=== PATIENT | male | born 1950 | race Caucasian/White ===

== ENCOUNTER 2016-11-15 12:21 | Inpatient (IN) | payer OTHER ==
[~2016-11-15] VITALS: Ht 177.8 cm; Wt 61.4 kg
[~2016-11-15 12:21] MED LIST: ALBU0.08 INH; BISA10SU5 RE; CHLO1TAB19 PO; DOCU5LIQ PEG; HEPA1INJ22 SQ; LISI20TA3; METO25TA56 PO; OXYC-57 PO; PANT1TAB48 PO; Pt states none
[2016-11-15] MEDS ORDERED: SODIUM CHLORIDE 0.9% 1000ML 1,000 ML IV STA (13:27)
[2016-11-15 13:43] LABS: BASO % 0.1 %; BASO ABS # 0.02 K/uL (0-0.2); COMPLETE YES; EOS % 0.1 %; HEMATOCRIT 43.8 % (42-52); IG% 0.3 %; LYMPH % 12.6 %; LYMPH ABS # 1.85 K/uL (1.2-3.4); MEAN CELL VOLUME 80.7 fL (80-100); MEAN CORPUSCULAR HEMOGLOBIN 26.9 pg (25-34); MEAN CORPUSCULAR HGB CONC 33.3 g/dl (32-36); MEAN PLATELET VOLUME 9.9 fL (7.4-10.4); MONO % 7.2 %; NEUT % 79.7 %; PLATELET COUNT 455 K/uL (130-400); RED BLOOD COUNT 5.43 M/uL (4.7-6.1); WHITE BLOOD COUNT 14.65 K/uL (4.8-10.8)
[2016-11-15 14:00] LABS: ISTAT CREATININE 0.9 mg/dl (0.6-1.3); ISTAT IONIZED CALCIUM 1.72 mmol/l (1.12-1.32)
[2016-11-15 14:13] LABS: BUN/CREATININE RATIO 17.3 (10-20); CALCIUM 13.1 mg/dl (8.5-10.1); CREATININE 0.89 mg/dl (0.60-1.40); MAGNESIUM 1.9 mg/dl (1.8-2.4); POTASSIUM 3.8 mmol/L (3.5-5.1)
--- NOTE | 2016-11-15 14:19 | DIAGNOSTIC IMAGING REPORT ---
CHEST ONE VIEW PORTABLE HISTORY: Short of breath. COMPARISON: None. FINDINGS: Nodular density within the right lateral lung base is consistent with a nipple shadow. The lungs are clear. The heart is normal in size. No pleural effusions. No pneumothorax. IMPRESSION: No acute process. Electronically signed by: Clay Trent M.D. 11/15/2016 2:18 PM Dictated Date/Time: 11/15/2016 2:15 PM
--- NOTE | 2016-11-15 15:00 | DIAGNOSTIC IMAGING REPORT ---
CT NECK WITH INTRAVENOUS CONTRAST HISTORY: large neck mass TECHNIQUE: Multiaxial CT images of the neck were performed following the use of intravenous contrast. COMPARISON STUDY: None. FINDINGS: There is a large necrotic and ulcerating mass within the left neck which measures 15 x 13 x 10 cm. The ulcerating tract to the skin surface measures 1.7 cm in diameter. The left internal jugular vein is obliterated. This mass encases the majority of the left common and internal carotid artery with mild narrowing of the proximal left internal carotid artery. There is right-sided necrotic cervical lymphadenopathy. There are multiple additional necrotic left cervical lymph nodes. There is also necrotic left upper peritracheal lymphadenopathy. Emphysema. Mucoid material within the distal trachea and right mainstem bronchus which may be due to aspiration. No suspicious lytic or blastic osseous lesions. The brain parenchyma and orbits are unremarkable. This large left neck mass results in marked right deviation of the airway with 50% narrowing of the supraglottic airway. This mass invades into the left parapharyngeal soft tissues, left tongue base, left thyroid lobe, and results in partial destruction of the left thyroid cartilage. This mass also partially encases the left thyroid lobe and crosses over the midline at the level of the cricoid cartilage anteriorly. This mass is also seen extending into the prevertebral soft tissues. The mass also invades the left supraglottic soft tissues. There is submandibular/submental lymphadenopathy. Dominant left posterior cervical chain lymph node measures 2.2 cm. This mass also encases the left hemimandible. IMPRESSION: 1. A 15 x 13 x 10 cm necrotic and ulcerating left neck mass as described above. This invades into the multiple adjacent structures and crosses over the midline anteriorly at the level of the cricoid cartilage. 2. There is obliteration of the left internal jugular vein and encasement of the left carotid arteries. 3. There is bilateral necrotic cervical lymphadenopathy and upper left paratracheal lymphadenopathy consistent with metastatic disease. 4. There is marked right airway deviation with approximately 50% narrowing of the supraglottic airway. 5. Additional findings as described above. 6. These findings were discussed with Dr. Grace at 2:50 PM on 11/15/2016. Electronically signed by: Clay Trent M.D. 11/15/2016 2:59 PM Dictated Date/Time: 11/15/2016 2:35 PM
[2016-11-15] MEDS ORDERED: MoRPHine SULFATE 10 MG/0.5 ML UDP PO PRN (18:00)
--- NOTE | 2016-11-15 18:22 | History and Physical ---
History & Physical Date & Time of Service: Nov 15, 2016 at 17:00 . Chief Complaint: weakness . Primary Care Physician: Aleksandr Spann D.O. . History of Present Illness Source: patient, family, clinic records, hospital records 66 [address]O male followed by Dr. Spann. History of COPD. Recently noted to have large neck mass. Seen by ENT. Biopsy revealed squamous cell carcinoma. Found to have advanced inoperable disease. Palliative management recommended. Referred to Radiation Oncology for consideration of palliative radiation therapy. Seen in their clinic today. Referred for hospitalization because of weakness, possible infection of neck mass, and other concerns. Patient indicates that he has not noted any fever or chills. He is very weak and spends 80% of his time in bed. Trouble eating due to jaw discomfort and dysphagia to solids. Has lost about 50 lbs. Has had drainage from left neck for a while. Experiencing significant neck pain, about 8/10. Pain is constant, nonradiating. He is not taking any analgesics at home . 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 Family History Mother- cerebral aneurysm Father- CT, hypertension, black lung Brother- Ca, ? colon . Social History Smoking Status: Former Smoker Alcohol Use: prior history of alcohol consumption Drug Use: none Occupational Status: employed Allergies Coded Allergies: No Known Allergies (Unverified , 11/15/16) Review of Systems Constitutional: + weight loss, No chills, No fever Eyes: No worsening of vision (left eye) ENT: + sore throat, + trouble swallowing Respiratory: + cough (chronic, unchanged), + shortness of breath (chronic) Cardiovascular: No chest pain, No edema Abdomen: No GI bleeding, No diarrhea, No nausea, No pain, No vomiting Musculoskeletal: No joint pain, No muscle pain Genitourinary - Male: No dysuria, No hematuria Neurologic: + problem reported (no headahces) Endocrine: + fatigue, No excessive thirst, No excessive urination Hematologic / Lymphatic: No abnormal bleeding/bruising Integumentary: No new/changing skin lesions, No rash Physical Exam Vital Signs Date Time Temp Pulse Resp B/P Pulse Ox O2 Delivery O2 Flow Rate FiO2 11/15/16 16:56 89 18 121/83 94 Room Air 11/15/16 14:58 88 18 142/96 97 Room Air 11/15/16 14:11 86 18 143/71 96 Room Air 11/15/16 12:27 36.8 102 20 130/103 97 Room Air General Appearance: no apparent distress, + thin Head: normocephalic, atraumatic Eyes: normal inspection, PERRL, EOMI, sclerae normal ENT: + pertinent finding (poor dentition) Neck: + pertinent finding (large mass left neck extending across midline, nodular, foul smelling drainage, trachea and other landmarks obscurred) Respiratory/Chest: no respiratory distress, no accessory muscle use, + wheezing (diffuse mild wheezing) Cardiovascular: regular rate, rhythm, no edema, no gallop, no JVD, no murmur Abdomen/GI: normal bowel sounds, non tender, soft, no organomegaly Extremities/Musculoskelatal: normal inspection, no calf tenderness, normal capillary refill, no pedal edema 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 adenopathy) Diagnostics Laboratory Results Results Past 24 Hours Test 11/15/16 13:20 11/15/16 13:27 Range/Units White Blood Count 14.65 4.8-10.8 K/uL Red Blood Count 5.43 4.7-6.1 M/uL Hemoglobin 14.6 14.0-18.0 g/dL Hematocrit 43.8 42-52 % Mean Corpuscular Volume 80.7 80-100 fL Mean Corpuscular Hemoglobin 26.9 25-34 pg Mean Corpuscular Hemoglobin Concent 33.3 32-36 g/dl Platelet Count 455 130-400 K/uL Mean Platelet Volume 9.9 7.4-10.4 fL Neutrophils (%) (Auto) 79.7 % Lymphocytes (%) (Auto) 12.6 % Monocytes (%) (Auto) 7.2 % Eosinophils (%) (Auto) 0.1 % Basophils (%) (Auto) 0.1 % Neutrophils # (Auto) 11.67 1.4-6.5 K/uL Lymphocytes # (Auto) 1.85 1.2-3.4 K/uL Monocytes # (Auto) 1.06 0.11-0.59 K/uL Eosinophils # (Auto) 0.01 0-0.5 K/uL Basophils # (Auto) 0.02 0-0.2 K/uL RDW Standard Deviation 42.9 36.4-46.3 fL RDW Coefficient of Variation 14.9 11.5-14.5 % Immature Granulocyte % (Auto) 0.3 % Immature Granulocyte # (Auto) 0.04 0.00-0.02 K/uL Sodium Level 139 136-145 mmol/L Potassium Level 3.8 3.5-5.1 mmol/L Chloride Level 100 98-107 mmol/L Carbon Dioxide Level 29 21-32 mmol/L Anion Gap 10.0 14.0 16-25 mmol/L Blood Urea Nitrogen 15 7-18 mg/dl Creatinine 0.89 0.60-1.40 mg/dl Est Creatinine Clear Calc Drug Dose 71.9 ml/min Estimated GFR () 104.0 Estimated GFR (Non- 89.7 BUN/Creatinine Ratio 17.3 10-20 Random Glucose 114 70-99 mg/dl Calcium Level 13.1 8.5-10.1 mg/dl Magnesium Level 1.9 1.8-2.4 mg/dl Total Bilirubin 0.5 0.2-1 mg/dl Direct Bilirubin 0.2 0-0.2 mg/dl Aspartate Amino Transf (AST/SGOT) 27 15-37 U/L Alanine Aminotransferase (ALT/SGPT) 13 12-78 U/L Alkaline Phosphatase 116 45-117 U/L Total Creatine Kinase 50 39-308 U/L Total Protein 7.9 6.4-8.2 gm/dl Albumin 2.6 3.4-5.0 gm/dl Bedside Hemoglobin 15.0 14.0-18.0 g/dl Bedside Hematocrit 44 42-52 % Bedside Sodium 138 135-144 mEq/L Bedside Potassium 3.8 3.3-5.0 mEq/L Bedside Chloride 99 101-112 mEq/L Bedside Total CO2 30 24-31 mEq/l Bedside Blood Urea Nitrogen 17 7-18 mg/dl Bedside Creatinine 0.9 0.6-1.3 mg/dl Bedside Glucose (other) 125 70-99 mg/dl Bedside Ionized Calcium (Lisa) 1.72 1.12-1.32 mmol/l Diagnostic Radiology CHEST ONE VIEW PORTABLE FINDINGS: Nodular density within the right lateral lung base is consistent with a nipple shadow. The lungs are clear. The heart is normal in size. No pleural effusions. No pneumothorax. IMPRESSION: No acute process. Electronically signed by: Clay Trent M.D. 11/15/2016 2:[address] NECK IMPRESSION: 1. A 15 x 13 x 10 cm necrotic and ulcerating left neck mass as described above. This invades into the multiple adjacent structures and crosses over the midline anteriorly at the level of the cricoid cartilage. 2. There is obliteration of the left internal jugular vein and encasement of the left carotid arteries. 3. There is bilateral necrotic cervical lymphadenopathy and upper left paratracheal lymphadenopathy consistent with metastatic disease. 4. There is marked right airway deviation with approximately 50% narrowing of the supraglottic airway. 5. Additional findings as described above. 6. These findings were discussed with Dr. Grace at 2:50 PM on 11/15/2016. Electronically signed by: Clay Trent M.D. 11/15/2016 2:59 PM . Impression Assessment and Plan HEAD & NECK CA Advanced / inoperable squamous cell Ca of neck. Associated with weight loss, pain, functional decline. Extensive CT findings as noted above with invasion of surrounding structures. Possible associated infection (vs necrosis of mass). Palliative care recommended by ENT. Referred to Radiation Oncology for possible palliative radiation therapy. IV fluids for dehydration and hypercalcemic. Consider bisphosphonate therapy if severe hypercalcemia persists. Oral morphine solution, IV morphine PRN, fentanyl patch for pain management. Unlikely that nutritional support via PEG or other approach would offer any benefit. Start IV ampicillin / sulbactam for possible associated infection of tumor. VTE PROPHYLAXIS High risk for VTE. SCD's. Ambulate as able. RESUSCITATION STATUS Discussed with patient and his family. He prefers a natural passing. No CPR or mech ventilation. DNR. DISPOSITION To be determined. Patient would like to be discharged to home if possible. Hospice care may be appropriate if palliative radiation therapy is not recommended. Medical follow-up with Dr. Spann. . VTE Prophylaxis VTE Risk Assessment Done? Y/N: Yes Risk Level: Moderate Given or contraindicated: SCD's
[2016-11-15 18:24] VITALS: O2SAT 95
[2016-11-15 19:14] VITALS: BP 134/88; PULSE 87; TEMP 36.6; O2SAT 96
--- NOTE | 2016-11-15 20:38 | EMERGENCY ROOM VISIT NOTE ---
History Report prepared by Macibshalonda: Oneal Donato Under the Supervision of: Dr. Den Grace D.O. First contact with patient: 12:41 Chief Complaint: WEAKNESS Stated Complaint: DEHYDRATION, L NECK MASS Nursing Triage Summary: mass on neck left with mass on right neck HPV. OPEN AREA LEFT SIDE NECK . History of Present Illness The patient is a 66 year old male with a history of squamous cell carcinoma who presents to the Emergency Room with complaints of worsening generalized weakness for the past two months. The patient was diagnosed with cancer of the neck two months ago. He has not been able to eat secondary to pain with swallowing. The patient is also short of breath. His last meal was approximately 1.5 months ago, as per his family. His family also notes that the patient has lost 50 pounds over the past two months. The patient is able to tolerate fluids. He saw Dr. Leiva (Oncologist) today, who referred him to the ED. He has followed up with ENT at [facility]. The patient denies an history of HIV or immunocompromise. He has a history of COPD and hypertension. He has alvares in his mouth that are old. Patient denies headache, change in vision, fevers, chest pain, nausea, vomiting, diarrhea, pain with urination, and melena. Source of History: patient, family Onset: two months Position: other (generalized) Quality: other (weakness) Timing: worsening Associated Symptoms: + SOB, + neck pain, No chest pain, No diarrhea, No headache, No melena, No nausea, No urinary symptoms, No vomiting Review of Systems See HPI for pertinent positives & negatives. A total of 10 systems reviewed and were otherwise negative. Past Medical & Surgical Medical Problems: (1) COPD (chronic obstructive pulmonary disease) (2) Head and neck cancer (3) HTN (hypertension) (4) Squamous cell carcinoma of oral cavity Family History Patient reports no known family medical history. Social History Smoking Status: Former Smoker Drug Use: none Marital Status: Occupation Status: employed Allergies Coded Allergies: No Known Allergies (Unverified , 11/15/16) Physical Exam Vital Signs Date Time Temp Pulse Resp B/P Pulse Ox O2 Delivery O2 Flow Rate FiO2 11/15/16 16:56 89 18 121/83 94 Room Air 11/15/16 14:58 88 18 142/96 97 Room Air 11/15/16 14:11 86 18 143/71 96 Room Air 11/15/16 12:27 36.8 102 20 130/103 97 Room Air Physical Exam GENERAL: Ill-appearing, cachectic, malnourished. EYE EXAM: normal conjunctiva. OROPHARYNX: Tongue is erythematous and dry with deviation of the posterior pharynx to the right, appears to have old scarring on the roof of the mouth, able to visualize posterior pharynx, no obvious bleeding, no swelling below the tongue. NECK: Hoarse voice with intermittent mumbling, large circumferential neck mass most prominent on the left and midline with oozing blood, foul/necrotic smell, no stridor. LUNGS: Clear to auscultation. Normal chest wall mechanics HEART: no murmurs, S1 normal and S2 normal ABDOMEN: abdomen soft, non-tender, normo-active bowel sounds, no masses, no rebound or guarding. Dry blood on the abdomen. BACK: Back is symmetrical on inspection and there is no deformity, no midline tenderness, no CVA tenderness. UPPER EXTREMITIES: upper extremities are grossly normal. LOWER EXTREMITIES: No pitting edema. NEURO EXAM: Normal sensorium, cranial nerves II-XII grossly intact, normal speech, no gross weakness of arms, no gross weakness of legs. Gross sensation intact. Medical Decision & Procedures ER Provider Diagnostic Interpretation: Xray results per the radiologist and my interpretation. Other results have been interpreted by the radiologist and reviewed by me. CHEST ONE VIEW PORTABLE HISTORY: Short of breath. COMPARISON: None. FINDINGS: Nodular density within the right lateral lung base is consistent with a nipple shadow. The lungs are clear. The heart is normal in size. No pleural effusions. No pneumothorax. IMPRESSION: No acute process. Electronically signed by: Clay Trent M.D. 11/15/2016 2:18 PM Dictated Date/Time: 11/15/2016 2:[address] NECK WITH INTRAVENOUS CONTRAST HISTORY: large neck mass TECHNIQUE: Multiaxial CT images of the neck were performed following the use of intravenous contrast. COMPARISON STUDY: None. FINDINGS: There is a large necrotic and ulcerating mass within the left neck which measures 15 x 13 x 10 cm. The ulcerating tract to the skin surface measures 1.7 cm in diameter. The left internal jugular vein is obliterated. This mass encases the majority of the left common and internal carotid artery with mild narrowing of the proximal left internal carotid artery. There is right-sided necrotic cervical lymphadenopathy. There are multiple additional necrotic left cervical lymph nodes. There is also necrotic left upper peritracheal lymphadenopathy. Emphysema. Mucoid material within the distal trachea and right mainstem bronchus which may be due to aspiration. No suspicious lytic or blastic osseous lesions. The brain parenchyma and orbits are unremarkable. This large left neck mass results in marked right deviation of the airway with 50% narrowing of the supraglottic airway. This mass invades into the left parapharyngeal soft tissues, left tongue base, left thyroid lobe, and results in partial destruction of the left thyroid cartilage. This mass also partially encases the left thyroid lobe and crosses over the midline at the level of the cricoid cartilage anteriorly. This mass is also seen extending into the prevertebral soft tissues. The mass also invades the left supraglottic soft tissues. There is submandibular/submental lymphadenopathy. Dominant left posterior cervical chain lymph node measures 2.2 cm. This mass also encases the left hemimandible. IMPRESSION: 1. A 15 x 13 x 10 cm necrotic and ulcerating left neck mass as described above. This invades into the multiple adjacent structures and crosses over the midline anteriorly at the level of the cricoid cartilage. 2. There is obliteration of the left internal jugular vein and encasement of the left carotid arteries. 3. There is bilateral necrotic cervical lymphadenopathy and upper left paratracheal lymphadenopathy consistent with metastatic disease. 4. There is marked right airway deviation with approximately 50% narrowing of the supraglottic airway. 5. Additional findings as described above. 6. These findings were discussed with Dr. Grace at 2:50 PM on 11/15/2016. Electronically signed by: Clay Trent M.D. 11/15/2016 2:59 PM Dictated Date/Time: 11/15/2016 2:35 PM Laboratory Results 11/15/16 13:20 Red Blood Count 5.43, Mean Corpuscular Volume 80.7, Mean Corpuscular Hemoglobin 26.9, Mean Corpuscular Hemoglobin Concent 33.3, Mean Platelet Volume 9.9, Neutrophils (%) (Auto) 79.7, Lymphocytes (%) (Auto) 12.6, Monocytes (%) (Auto) 7.2, Eosinophils (%) (Auto) 0.1, Basophils (%) (Auto) 0.1, Neutrophils # (Auto) 11.67, Lymphocytes # (Auto) 1.85, Monocytes # (Auto) 1.06, Eosinophils # (Auto) 0.01, Basophils # (Auto) 0.02 11/15/16 13:20 Test 11/15/16 13:20 11/15/16 13:27 White Blood Count 14.65 K/uL (4.8-10.8) Red Blood Count 5.43 M/uL (4.7-6.1) Hemoglobin 14.6 g/dL (14.0-18.0) Hematocrit 43.8 % (42-52) Mean Corpuscular Volume 80.7 fL (80-100) Mean Corpuscular Hemoglobin 26.9 pg (25-34) Mean Corpuscular Hemoglobin Concent 33.3 g/dl (32-36) Platelet Count 455 K/uL (130-400) Mean Platelet Volume 9.9 fL (7.4-10.4) Neutrophils (%) (Auto) 79.7 % Lymphocytes (%) (Auto) 12.6 % Monocytes (%) (Auto) 7.2 % Eosinophils (%) (Auto) 0.1 % Basophils (%) (Auto) 0.1 % Neutrophils # (Auto) 11.67 K/uL (1.4-6.5) Lymphocytes # (Auto) 1.85 K/uL (1.2-3.4) Monocytes # (Auto) 1.06 K/uL (0.11-0.59) Eosinophils # (Auto) 0.01 K/uL (0-0.5) Basophils # (Auto) 0.02 K/uL (0-0.2) RDW Standard Deviation 42.9 fL (36.4-46.3) RDW Coefficient of Variation 14.9 % (11.5-14.5) Immature Granulocyte % (Auto) 0.3 % Immature Granulocyte # (Auto) 0.04 K/uL (0.00-0.02) Est Creatinine Clear Calc Drug Dose 71.9 ml/min Estimated GFR () 104.0 Estimated GFR (Non- 89.7 BUN/Creatinine Ratio 17.3 (10-20) Calcium Level 13.1 mg/dl (8.5-10.1) Magnesium Level 1.9 mg/dl (1.8-2.4) Total Bilirubin 0.5 mg/dl (0.2-1) Direct Bilirubin 0.2 mg/dl (0-0.2) Aspartate Amino Transf (AST/SGOT) 27 U/L (15-37) Alanine Aminotransferase (ALT/SGPT) 13 U/L (12-78) Alkaline Phosphatase 116 U/L (45-117) Total Creatine Kinase 50 U/L (39-308) Total Protein 7.9 gm/dl (6.4-8.2) Albumin 2.6 gm/dl (3.4-5.0) Bedside Hemoglobin 15.0 g/dl (14.0-18.0) Bedside Hematocrit 44 % (42-52) Bedside Sodium 138 mEq/L (135-144) Bedside Potassium 3.8 mEq/L (3.3-5.0) Bedside Chloride 99 mEq/L (101-112) Bedside Total CO2 30 mEq/l (24-31) Anion Gap 14.0 mmol/L (16-25) Bedside Blood Urea Nitrogen 17 mg/dl (7-18) Bedside Creatinine 0.9 mg/dl (0.6-1.3) Bedside Glucose (other) 125 mg/dl (70-99) Bedside Ionized Calcium (Lisa) 1.72 mmol/l (1.12-1.32) Laboratory results per my review. Medications Administered Medications (Trade) Dose Ordered Sig/Dex Route Start Time Stop Time Status Last Admin Dose Admin Sodium Chloride (Nss 1000ml) 1,000 ml @ 999 mls/hr Q1H1M STAT IV 11/15/16 13:27 11/15/16 14:27 DC 11/15/16 13:27 999 MLS/HR ED Course ED COURSE: Vital signs were reviewed and showed tachycardia. The patients medical record was reviewed The above diagnostic studies were performed and reviewed. ED treatments and interventions as stated above. 1243: The patient was evaluated in room B9. A complete history and physical examination was performed. 1320: The patient has been seen by [facility] tumor board, ENT, and rad onc. Palliative chemo/radiation was recommended. 1325: The patient and his family was updated. 1327: NSS 1000 ml @ 999 mls/hr. 1340: Spoke with Dr. Farrell, ENT. He reviewed [facility] reports on the patient. He does not believe the patient is a surgical candidate. The patient is DNR/DNI. 1355: Spoke with Dr. Leiva, Oncologist, who referred the patient to the ED. He does not believe the patient would have much benefit from radiation oncology at this time. 1548: [facility] The patient will be evaluated. 1550: Upon reevaluation, the patient is stable.I discussed my findings with the patient and he understands and agrees with the treatment plan. Based on the patients age, coexisting illnesses, exam and lab findings the decision to treat as an inpatient was made. The patient remained stable while under my care. The patient will be evaluated for further management. Medical Decision Differential diagnosis: Etiologies such as metabolic, infection, hypo/hyperglycemia, electrolyte abnormalities, cardiac sources, intracerebral event, toxicologic, neurologic, as well as others were entertained. 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 He has had an extensive workup at [facility] by the tumor Board and he was scheduled for outpatient chemotherapy and radiation which was palliative in nature per the report. He is referred in by radiation oncology. For being extremely weak. Labs were obtained and showed hypercalcemia. CT of the neck shows airway compromise along with the mass including/surrounding the carotid artery. I discussed this with Dr. Farrell and based on the presentation and previous reports the patient is not a surgical candidate. I discussed this with the patient and family. He is a DO NOT RESUSCITATE/DO NOT RESUSCITATE. Patient was given a bolus normal saline. He was admitted to internal medicine for diffuse weakness which may be secondary to his hypercalcemia could be from bone involvement. Patient will likely benefit from hospice and further outpatient help. Consults Time Called: 1330 Consulting Physician: Dr. Farrell, ENT. Returned Call: [phone]: Spoke with Dr. Farrell ENT. He reviewed [facility] reports on the patient. He does not believe the patient is a surgical candidate. The patient is DNR/DNI. Additional Consults: Time Called: 1345 Consulted Physician: Dr. Leiva, Oncologist Returned Call: [phone] Additional Comments: 1355: Spoke with Dr. Leiva Oncologist Time Called: 1540 Consulted Physician: Dr. Man [facility] Returned Call: [phone] Additional Comments: [id number]: Spoke with Dr. Man [facility]. The patient will be evaluated. Impression Primary Impression: Malnutrition Additional Impressions: Neck mass Hypercalcemia Scribe Attestation The scribe's documentation has been prepared under my direction and personally reviewed by me in its entirety. I confirm that the note above accurately reflects all work, treatment, procedures, and medical decision making performed by me. Departure Information Dispostion Being Evaluated By Hospitalist Referrals Dontae Arenas M.D. (PCP) Patient Instructions My [facility] Problem Qualifiers
[2016-11-15] MEDS: AMPICILLIN/SULBACTAM SOD INJ 3,000 MG in SODIUM CHLORIDE 0.9% 100ML 100 ML IV SCH (20:58)
[2016-11-15 23:46] VITALS: BP 122/83; PULSE 85; TEMP 36.4; O2SAT 92
[2016-11-16] MEDS: SODIUM CHLORIDE 0.9% 1000ML 1,000 ML IV SCH ×5 (02:10→20:15)
[2016-11-16] MEDS: AMPICILLIN/SULBACTAM SOD INJ 3,000 MG in SODIUM CHLORIDE 0.9% 100ML 100 ML IV SCH ×4 (02:10→17:08)
[2016-11-16 03:19] VITALS: Ht 177.8 cm; Wt 61.4 kg
[2016-11-16 06:55] LABS: BUN/CREATININE RATIO 18.8 (10-20); CALCIUM 11.8 mg/dl (8.5-10.1); CREATININE 0.67 mg/dl (0.60-1.40); POTASSIUM 3.2 mmol/L (3.5-5.1)
[2016-11-16 07:27] VITALS: BP 145/74; PULSE 90; TEMP 36.2; O2SAT 95
[2016-11-16] MEDS ORDERED: FENTANYL 25 MCG/HR TDSY TD SCH (07:30)
[2016-11-16 15:01] VITALS: BP 159/92; PULSE 117; TEMP 36.2; O2SAT 94
[2016-11-16] MEDS: CHECK FENTANYL PATCH PLACEMENT SCH (16:03)
[2016-11-16] MEDS: POTASSIUM CHLR 10 MEQ / WTR 10 MEQ in PREMIXED WATER 100 ML IV SCH ×2 (20:56→23:35)
--- NOTE | 2016-11-16 22:05 | Progress Note ---
Internal Med Progress Note Date of Service: Nov 16, 2016. Provider Documentation: SUBJECTIVE: mumbles words , very hard to understand mentions of having pain on neck area has foul smelling drainage rt arm IV site got pulled out accidently , noticed to have blood in fingers , hospital gown no active bleeding noted at IV site Nursing aware OBJECTIVE: Vital Signs-as noted below Exam: General-chronically ill appearing , restless Eyes-sclera non icteric Neck-Diffuse /necrotic foul smelling mass on left neck area Lungs-diminished , with audible wheeze Heart-regular S1/S2 Abdomen-soft , non tender Extremities-no lower ext edema Neuro-confusion , delirium Lab data as noted below. 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 recently diagnosed : presented with left anterior cervical neck mass Biopsy 10/02/2016 revealing metastatic squamous cell carcinoma Associated with weight loss, pain, functional decline. CT of neck shows extensive invasion of surrounding structures. associated with Necrosis of mass Palliative care recommended by ENT. Referred to Radiation Oncology for possible palliative radiation therapy. I very poor prognosis end stage status no PO intake possible for severe dysphagia IV morphine PRN palliative care consulted hospice /comfort care would be appropriate VTE PROPHYLAXIS High risk for VTE. SCD's. RESUSCITATION STATUS DNR. extremely poor prognosis -limited life expectancy give rapidly progressive invasive Sq cell PA of neck , no oral intake ongoing respiratory distress for air way compromise for air way compromise DISPOSITION To be determined. will possible need palliative /hospice care depending family support home with hospice vs possible Hospice care at care home Social service consulted for discharge planning Medical follow-up with Dr. Spann. . DVT PROPHYLAXIS [] DISPOSITION [] Vital Signs: Date Time Temp Pulse Resp B/P Pulse Ox O2 Delivery O2 Flow Rate FiO2 11/17/16 08:00 Room Air 11/17/16 07:26 36.3 97 20 139/84 93 11/17/16 00:00 Room Air 11/16/16 23:14 36.9 107 20 134/82 94 Room Air 11/16/16 20:00 Room Air 11/16/16 16:00 Room Air 11/16/16 15:01 36.2 117 20 159/92 94 Lab Results:
[2016-11-16 23:14] VITALS: BP 134/82; PULSE 107; TEMP 36.9; O2SAT 94
[2016-11-17] MEDS: POTASSIUM CHLR 10 MEQ / WTR 10 MEQ in PREMIXED WATER 100 ML IV SCH (00:58)
[2016-11-17] MEDS: CHECK FENTANYL PATCH PLACEMENT SCH ×2 (00:59→07:22)
[2016-11-17] MEDS: AMPICILLIN/SULBACTAM SOD INJ 3,000 MG in SODIUM CHLORIDE 0.9% 100ML 100 ML IV SCH ×2 (06:27→12:00)
[2016-11-17] MEDS: SODIUM CHLORIDE 0.9% 1000ML 1,000 ML IV SCH (06:28)
[2016-11-17 07:26] VITALS: BP 139/84; PULSE 97; TEMP 36.3; O2SAT 93
[2016-11-17] MEDS: MoRPHine SULFATE 4 MG/ML 1 ML CARP\\VIAL IV PRN ×3 (10:38→14:05)
[2016-11-17] MEDS ORDERED: ONDANSETRON INJ 2 MG/ML 2 ML VIAL IV PRN (11:30)
[2016-11-17] MEDS ORDERED: LORAZEPAM 2 MG/ML 1 ML VIAL IV PRN (11:30)
[2016-11-17 14:55] VITALS: BP 155/92; PULSE 140; TEMP 36.6; O2SAT 98
[2016-11-17] MEDS ORDERED: ATROPINE SULFATE 1% OP SOLN 5 ML BTL SL PRN (16:00)
[2016-11-17] MEDS ORDERED: CHECK SCOPOLAMINE PATCH PLACEMENT SCH (16:00)
[2016-11-17] MEDS ORDERED: SCOPOLAMINE 1.5 MG TDSY TD SCH (16:00)
--- NOTE | 2016-11-17 16:12 | Progress Note ---
Internal Med Progress Note Date of Service: Nov 17, 2016. Provider Documentation: SUBJECTIVE: developed agonal breathing with progressive mottling of extremities unresponsive Family members -Sons and daughter in law were visiting updated regarding poor prognosis and rapidly declined status family agreeable for Comfort care /hospice does not pt to suffer palliative care consult ordered already Iv ABx , lab draws Discontinued comfort care with IV Morphine , scopolamine patch PRN SL atropine gtt given progressive respiratory failure , evidence of circulatory failure -pt may in next few hours family updated OBJECTIVE: Vital Signs-as noted below Exam: minimum exam for comfort care General-unresponsive Neck-Diffuse /necrotic foul smelling mass on left neck area Lungs-diminished , with audible wheeze Neuro-unresponsive with agonal breathing EXt ; mottling in extremity , cold , distal pulses not palpable Lab data as noted below. 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 recently diagnosed : presented with left anterior cervical neck mass Biopsy 10/02/2016 revealing metastatic squamous cell carcinoma CT of neck shows extensive invasion of surrounding structures. associated with Necrosis of mass Palliative care recommended by ENT. I very poor prognosis end stage status D/w family members -comfort care only developed agonal breathing later this afternoon family called over phone -already left hospital spoke with Son Leroy Marquez -given update pt may overnight Son wants pt to remain comfortable appreciate the end of life care provided by Hospital staff Family already said their prayers /farewell to patient son will be updated with change of status / RESUSCITATION STATUS DNR. extremely poor prognosis -limited life expectancy give rapidly progressive invasive Sq cell PA of neck , ongoing respiratory distress for air way compromise for air way compromise having agonal breathing scopolamine patch , atropine SL gtt -for increased oral secretion IV morphine PRN for discomfort cont to provide comfort care Vital Signs: Date Time Temp Pulse Resp B/P Pulse Ox O2 Delivery O2 Flow Rate FiO2 11/17/16 14:55 36.6 140 20 155/92 98 2.0 11/17/16 08:00 Room Air 11/17/16 07:26 36.3 97 20 139/84 93 11/17/16 00:00 Room Air 11/16/16 23:14 36.9 107 20 134/82 94 Room Air 11/16/16 20:00 Room Air
[2016-11-17] MEDS ORDERED: MoRPHine SULFATE 2 MG/ML CARP IV PRN ×2 (16:15)
--- NOTE | 2016-11-17 19:15 | Progress Note ---
Progress Note PRONOUNCEMENT : pt at 1845 pm was on comfort care for metastatic Sq cell Ca of Neck developed agonal breathing , unresponsive having mottling in extremities , cold and clammy family updated regarding declining status -aware wanted Pt to be comfortable pt ceased breathing evaluated at bedside pupils bilat dilated , non reactive, no audible heart sound , no breath sound or breathing movement pt Time of 1845 PM Sep 16 2017 Cause of metastatic Sq cell Ca of neck with extensive invasion to underlying skin, bone, vascular area severe dysphagia -no PO intake for weeks compromised airway due to tumor burden respiratory failure due to metastatic malignancy with invasion of airway cardiopulmonary arrest pt was on comfort care /Hospice DNR/DNI Family Son Leroy Marquez updated over phone .
--- NOTE | 2016-11-17 19:21 | Discharge Summary ---
Discharge Summary Admission Date: Nov 15, 2016 at 17:04 Discharge Date: Nov 17, 2016 Discharge Disposition: Principal Diagnosis: METASTATIC SQ CELL CA OF NECK HOSPICE PALLIATIVE CARE FOR TERMINAL ILLNESS PT IN COMFORT CARE Admission Information HPI (per Admitting provider): 66 YO male followed by Dr. Spann. History of COPD. Recently noted to have large neck mass. Seen by ENT. Biopsy revealed squamous cell carcinoma. Found to have advanced inoperable disease. Palliative management recommended. Referred to Radiation Oncology for consideration of palliative radiation therapy. Seen in their clinic today. Referred for hospitalization because of weakness, possible infection of neck mass, and other concerns. Patient indicates that he has not noted any fever or chills. He is very weak and spends 80% of his time in bed. Trouble eating due to jaw discomfort and dysphagia to solids. Has lost about 50 lbs. Has had drainage from left neck for a while. Experiencing significant neck pain, about 8/10. Pain is constant, nonradiating. He is not taking any analgesics at home . Physical Exam (per Admitting): General Appearance: no apparent distress, + thin Head: normocephalic, atraumatic Eyes: normal inspection, PERRL, EOMI, sclerae normal ENT: + pertinent finding (poor dentition) Neck: + pertinent finding (large mass left neck extending across midline, nodular, foul smelling drainage, trachea and other landmarks obscurred) Respiratory/Chest: no respiratory distress, no accessory muscle use, + wheezing (diffuse mild wheezing) Cardiovascular: regular rate, rhythm, no edema, no gallop, no JVD, no murmur Abdomen/GI: normal bowel sounds, non tender, soft, no organomegaly Extremities/Musculoskelatal: normal inspection, no calf tenderness, normal capillary refill, no pedal edema Neurologic/Psych: band edger II-XII nml as tested (PERRL, EOMI), no motor/sensory deficits (motor grossly intact), alert, oriented x 3, + depressed affect Skin: normal color, warm/dry, no rash Lymphatic: + pertinent finding (large cervical mass, ? adenopathy) Hospital Course PRONOUNCEMENT : pt at 1845 pm was on comfort care for metastatic Sq cell Ca of Neck developed agonal breathing , unresponsive having mottling in extremities , cold and clammy family updated regarding declining status -aware wanted Pt to be comfortable pt ceased breathing evaluated at bedside pupils bilat dilated , non reactive, no audible heart sound , no breath sound or breathing movement pt Time of 1845 PM Sep 16 2017 Cause of metastatic Sq cell Ca of neck with extensive invasion to underlying skin, bone, vascular area severe dysphagia -no PO intake for weeks compromised airway due to tumor burden respiratory failure due to metastatic malignancy with invasion of airway cardiopulmonary arrest pt was on comfort care /Hospice DNR/DNI Family Son Leroy Marquez updated over phone . 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 recently diagnosed : presented with left anterior cervical neck mass Biopsy 10/02/2016 revealing metastatic squamous cell carcinoma CT of neck shows extensive invasion of surrounding structures. associated with Necrosis of mass Palliative care recommended by ENT. I very poor prognosis end stage status D/w family members -comfort care only developed agonal breathing later this afternoon family called over phone -already left hospital spoke with Son Leroy Marquez -given update pt may overnight Son wants pt to remain comfortable appreciate the end of life care provided by Hospital staff Family already said their prayers /farewell to patient son will be updated with change of status / RESUSCITATION STATUS DNR. extremely poor prognosis -limited life expectancy give rapidly progressive invasive Sq cell PA of neck , ongoing respiratory distress for air way compromise for air way compromise having agonal breathing scopolamine patch , atropine SL gtt -for increased oral secretion IV morphine PRN for discomfort cont to provide comfort care Discharge Instructions PATIENT
[2016-11-19] MEDS ORDERED: FENTANYL PATCH REMOVE & WASTE SCH (07:29)
== END 2016-11-17 20:23 | disposition expired | DRG 607 ==
LOC: ENRESERVDT → ENRESERVTM → EDBD 12:21 → C.EDB 12:22 → C.4E 17:04
PROVIDERS: ADMIT Hospitalist; ATTEND Hospitalist
DX: C44.42 Squamous cell carcinoma of skin of scalp and neck (principal); R13.10 Dysphagia, unspecified; R63.8 Other symptoms and signs concerning food and fluid intake; Z51.5 Encounter for palliative care; Z66 Do not resuscitate; J44.9 Chronic obstructive pulmonary disease, unspecified; I10 Essential (primary) hypertension; Z87.891 Personal history of nicotine dependence; Z82.49 Family history of ischemic heart disease and other diseases of the circulatory system; Z83.6 Family history of other diseases of the respiratory system; C06.9 Malignant neoplasm of mouth, unspecified